=== PATIENT | female | born 1990 | race Hispanic/Latino ===

== ENCOUNTER 2018-07-02 20:30 | Emergency (ER) | payer OTHER ==
[2018-07-02 20:42] VITALS: TEMP 96.8
--- NOTE | 2018-07-02 21:37 | ED PDOC ---
HPI: Chest Pain Time Seen by Provider: 07/02/18 20:47 Chief Complaint (Nursing): Chest Pain Chief Complaint (Provider): chest pain History Per: Patient History/Exam Limitations: no limitations Onset/Duration Of Symptoms: Days (4), Sudden Onset Current Symptoms Are (Timing): Still Present Context: Travel Severity: Mild Quality: Tightness Associated Symptoms: denies: Nausea, Dyspnea Modifying Factors: Other Indicated Below Exacerbating Factors: Deep Breathing Alleviating Factors: Rest Additional Complaint(s): 28yo female c/o chest pain left sided no radiation, sharp/tightness associated with no SOB or dizziness, onset after diving to 30-40ft in [facility] on evening, returned to [place] monday. Denies leg pain or edema, history of blood clots , cough, fever, headache or back pain. Past Medical History Reviewed: Historical Data, Nursing Documentation, Vital Signs Vital Signs: Last Vital Signs Temp 96.8 F L 07/02/18 20:40 Pulse 62 07/02/18 23:50 Resp 15 07/02/18 23:50 BP 107/71 07/02/18 23:50 Pulse Ox 99 07/02/18 23:50 - Medical History PMH: No Chronic Diseases - Surgical History Surgical History: No Surg Hx - Family History Family History: States: Unknown Family Hx - Social History Current smoker - smoking cessation education provided: Yes (rarely) - Allergies Allergies/Adverse Reactions: Allergies Allergy/AdvReac Type Severity Reaction Status Date / Time No Known Allergies Allergy Verified 07/02/18 20:39 Review of Systems Constitutional: Negative for: Fever ENT: Negative for: Ear Pain Cardiovascular: Positive for: Chest Pain. Negative for: Palpitations, Orthopnea , Paroxysmal Noc. Dyspnea, Edema, Light Headedness Respiratory: Negative for: Cough, Shortness of Breath Gastrointestinal: Negative for: Nausea, Abdominal Pain Genitourinary Female: Negative for: Incontinence Musculoskeletal: Negative for: Neck Pain, Back Pain Skin: Negative for: Rash, Lesions, Jaundice Neurological: Negative for: Weakness, Numbness, Headache, Dizziness Psych: Negative for: Psychosis Physical Exam - Reviewed Nursing Documentation Reviewed: Yes Vital Signs Reviewed: Yes - Physical Exam Appears: Positive for: Well, Non-toxic, No Acute Distress Head Exam: Positive for: ATRAUMATIC, NORMAL INSPECTION, NORMOCEPHALIC Skin: Positive for: Normal Color, Warm, DRY Eye Exam: Positive for: EOMI, Normal appearance, PERRL ENT: Positive for: Normal ENT Inspection Neck: Positive for: Normal, Painless ROM Cardiovascular/Chest: Positive for: Regular Rate, Rhythm. Negative for: Tachycardia, Irregularly Irregular Respiratory: Positive for: CNT, Normal Breath Sounds Gastrointestinal/Abdominal: Negative for: Distended Back: Positive for: Normal Inspection Extremity: Positive for: Normal ROM. Negative for: Tenderness, Calf Tenderness , Swelling Neurologic/Psych: Positive for: Alert, Oriented - Laboratory Results Result Diagrams: 07/02/18 21:37 07/02/18 21:37 - ECG ECG: Positive for: Interpreted By Me ECG Rhythm: Positive for: Normal QRS, Normal ST Segment, Sinus Rhythm. Negative for: ST/T Changes Rate: 67 O2 Sat by Pulse Oximetry: 100 Medical Decision Making Medical Decision Making: XRay from [facility] 2 view negative for pneumonia or pneumothorax per the copy she has with her. EKG from [facility] also reviewed, no changes from current EKG performed in ED. Given diving before pain obtain CTA r/o occult ptx, PE, etc. Risks and benefits explained to patient. HEART score 0 labs reviewed, all unremarkable w trop and BNP neg CTA chest performed negative for PE or pneumothorax per radiologist TECHNIQUE: Axial computed tomographic angiography images of the chest with intravenous contrast using CT angiography protocol. All CT scans at this facility use at least one of these dose optimization techniques: automated exposure control; mA and/or kV adjustment per patient size (includes targeted exams where dose is matched to clinical indication); or iterative reconstruction. Coronal and sagittal reformatted images were created and reviewed. MIP reconstructed images were created and reviewed. CONTRAST: 80 ml of [id number] administered intravenously. COMPARISON: No relevant prior studies available. FINDINGS: Pulmonary arteries: Normal. No pulmonary emboli. Aorta: Normal. No aortic aneurysm. No aortic dissection. Lungs: Normal. No consolidation. No masses. Pleural space: Normal. No pneumothorax. No pleural effusion. Heart: Normal. No cardiomegaly. No pericardial effusion. Bones/joints: Unremarkable. No acute fracture. Soft tissues: Unremarkable. Lymph nodes: Unremarkable. No enlarged lymph nodes. IMPRESSION: No acute findings. No pulmonary embolism. 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 Disposition - Clinical Impression Clinical Impression: Chest pain - Patient ED Disposition Is Patient to be Admitted: No Counseled Patient/Family Regarding: Studies Performed, Diagnosis, Need For Followup - Disposition Referrals: Kwabena Hylton MD [Staff Provider] - Disposition: Routine/Home Disposition Time: 23:00 Condition: STABLE Additional Instructions: Followup with primary care for further testing. Return to ER for any worse or new symptoms. Instructions: Chest Pain Forms: [facility] (Latvian)
[2018-07-02 21:44] LABS: BASO % 0.6 % (0.0-2.0); EOS # 0.1 K/uL (0.0-0.7); EOS % 2.6 % (0.0-4.0); HEMOGLOBIN 15.2 g/dL (12.0-16.0); LYMPH # 2.1 K/uL (1.0-4.3); LYMPH % 38.5 % (20.0-40.0); MEAN CELL VOLUME 93.9 fl (81.0-99.0); MEAN CORPUSCULAR HEMOGLOBIN 32.4 pg (27.0-31.0); MEAN CORPUSCULAR HGB CONC 34.5 g/dL (33.0-37.0); MEAN PLATELET VOLUME 8.6 fl (7.2-11.7); MONO # 0.4 K/uL (0.0-0.8); MONO % 7.7 % (0.0-10.0); NEUT # 2.8 K/uL (1.8-7.0); NEUT % 50.6 % (50.0-75.0); RBC 4.7 Mil/uL (3.80-5.20); RED CELL DISTRIBUTION WIDTH 12.6 % (11.5-14.5); WHITE BLOOD COUNT 5.5 K/uL (4.8-10.8)
[2018-07-02 21:49] LABS: PROTHROMBIN TIME 11.2 Seconds (9.8-13.1)
[2018-07-02 21:52] LABS: PARTIAL THROMBOPLASTIN TIME 32.3 Seconds (25.6-37.1)
[2018-07-02 21:56] LABS: ALB/GLOB RATIO 1.6 (1.0-2.1); ALBUMIN 4.9 g/dL (3.5-5.0); ALT/SGPT 30 U/L (9-52); AST/SGOT 32 U/L (14-36); BLOOD UREA NITROGEN 11 mg/dl (7-17); GFR NON-AFRICAN AMERICAN > 60
[2018-07-02] MEDS ORDERED: Iodixanol 320 MG/ML 100 ML BOTTLE IV ONE (22:06)
[2018-07-02] MEDS ORDERED: Sodium Chloride 0.9% 50 ML IV ONE (22:06)
[2018-07-02 22:07] LABS: B-TYPE NATRIURETIC PEPTIDE 62.3 pg/ml (0-450)
[2018-07-02 23:50] VITALS: BP 107/71; RESP 15
--- NOTE | 2018-07-03 07:31 | CARD ---
APPROVED REPORT Date of service: 07/02/2018 EKG Measurement Heart [id number] NM [id number] <Conclusion> Normal sinus rhythm Normal ECG
--- NOTE | 2018-07-03 11:03 | CT ---
Date of service: 07/02/2018 PROCEDURE: CT Chest with contrast (Pulmonary Angiogram) HISTORY: chest pain recent air travel COMPARISON: None available. TECHNIQUE: Axial computed tomography images were obtained of the chest in the pulmonary arterial phase of enhancement. Coronal and sagittal reformatted images were created and reviewed. Maximum intensity projection (MIP) reconstructed images in the following planes: Axial only Mean Hounsfield unit values in the main pulmonary artery: 436.82 Intravenous contrast dose: 80 cc Visipaque 320. Total exam DLP = 246.82 mGy-cm. This CT exam was performed using one or more of the following dose reduction techniques: Automated exposure control, adjustment of the mA and/or kV according to patient size, and/or use of iterative reconstruction technique. FINDINGS: PULMONARY ARTERIES: Unremarkable. No pulmonary embolism. AORTA: No acute findings. No thoracic aortic aneurysm. LUNGS: Unremarkable. No nodule, mass or pulmonary consolidation. PLEURAL SPACES: Unremarkable. No effusion or pneumothorax. HEART: Unremarkable. No cardiomegaly. No significant pericardial effusion. LYMPH NODES: No lymphadenopathy. BONES, CHEST WALL: Unremarkable. No fracture or destructive lesion OTHER FINDINGS: Unremarkable. IMPRESSION: Unremarkable CT pulmonary angiogram. No pulmonary embolus. Concordant results (preliminary interpretation) provided by [facility] [employer]. Procedure Completed: 22:26. Preliminary ([facility]) Report: Dictated and Authenticated: 22:48. Final Interpretation: 11:00. July 03, 2018.
[2018-07-05 17:03] VITALS: PULSE 67; O2SAT 100
== END 2018-07-02 23:55 | disposition home or self-care (01) ==
LOC: H.ER 20:30
DX: R07.9 Chest pain, unspecified (principal)
CPT/HCPCS: 71275; 80053; 81025; 83880; 84484; 85025; 85610; 85730; 93005; 99283; Q9967